=== PATIENT | female | born 1990 | race Caucasian/White ===

== ENCOUNTER 2016-09-18 22:58 | Emergency (ER) | payer OTHER ==
[2016-09-19 00:49] LABS: Hematocrit 41 % (35-47); Hemoglobin 13.8 g/dl (12.0-16.0); Mean Corpuscular HGB Conc 33 g/dl (31-36); Mean Corpuscular Hemoglobin 30 pg (27-31); Mean Corpuscular Volume 90 fL (80-97); Mean Platelet Volume 8 um3 (7.4-10.4); Red Blood Count 4.61 10^6/ul (4.0-5.4); Red Cell Distribution Width 13 % (10.5-15); White Blood Count 8.4 10^3/ul (3.5-10.8)
[2016-09-19 01:18] LABS: Albumin 4.2 g/dL (3.2-5.2); BUN/Creatinine Ratio 13.8 (8-20); Calcium 9.5 mg/dL (8.6-10.3); EGFR African American 93.3 (>60); EGFR Non-African American 72.6 (>60); Globulin 3.2 g/dL (2-4); Magnesium 2.1 mg/dL (1.9-2.7); Potassium 3.6 mmol/L (3.5-5.0); Total Bilirubin 0.5 mg/dL (0.2-1.0); Total Protein 7.4 g/dL (6.4-8.9)
[2016-09-19 01:28] LABS: TSH (Thyroid Stimulating Horm) 3.9 mcIU/mL (0.34-5.60)
--- NOTE | 2016-09-19 01:29 | ED ---
Antonio Smith Matthew, scribed for Edwin Hearn MD on 09/18/16 at 2346 . Palpitations / Dysrhythmia - HPI Summary HPI Summary: A 25 y/o female presents to the ED with palpitations since since 22:00 today, which have since resolved. The palpitations lasted for __ and have since reoslved. She lasted has a plapitaiton a week ago. She was sitting on the couch when the symptoms started. - History of Current Complaint Chief Complaint: EDDysrhythmPalp Time Seen by Provider: 09/18/16 23:32 Hx Obtained From: Patient Onset/Duration: Sudden Onset, Lasting Hours - 1, Resolved Timing: Constant Severity Initially: Moderate Severity Currently: None Aggravating: Nothing Alleviating: Nothing Associated Signs & Symptoms: Negative - Allergy/Home Medications Allergies/Adverse Reactions: Allergies Allergy/AdvReac Type Severity Reaction Status Date / Time Azithromycin [From Zithromax] Allergy Difficulty Verified 02/23/16 11:05 Breathing/Wheezing PMH/Surg Hx/FS Hx/Imm Hx Endocrine/Hematology History: Denies: Hx Diabetes Cardiovascular History: Denies: Hx Hypertension, Hx Pacemaker/ICD Respiratory History: Reports: Hx Asthma GI History: Reports: Hx Gastroesophageal Reflux Disease - RARELY History: Denies: Hx Renal Disease Sensory History: Denies: Hx Contacts or Glasses, Hx Hearing Aid Opthamlomology History: Denies: Hx Contacts or Glasses Psychiatric History: Denies: Hx Panic Disorder - Surgical History Surgery Procedure, Year, and Place: WISDOM TEETH REMOVAL 2010. D+C 2009 [place]. Tonsilectomy Hx Anesthesia Reactions: No Infectious Disease History: Denies: Hx Clostridium Difficile, Hx Hepatitis, Hx Human Immunodeficiency Virus (HIV), Hx of Known/Suspected MRSA, Hx Shingles, Hx Tuberculosis, Hx Known/ Suspected VRE, Hx Known/Suspected VRSA, History Other Infectious Disease, Traveled Outside the [place] in Last 30 Days - Family History Known Family History: Positive: Hypertension - Social History Alcohol Use: Rare Substance Use Type: Reports: None Substance Use Comment - Amount & Last Used: 1 WEEK AGO Smoking Status (MU): Never Smoked Tobacco Have You Smoked in the Last Year: No Review of Systems Constitutional: Negative Eyes: Negative ENT: Negative Positive: Palpitations - since resolved Respiratory: Negative Gastrointestinal: Negative Genitourinary: Negative Musculoskeletal: Negative Skin: Negative Neurological: Negative Psychological: Normal All Other Systems Reviewed And Are Negative: Yes Physical Exam Vital Signs On Initial Exam: Initial Vitals Temp Pulse Resp BP Pulse Ox 97.9 F 69 16 126/79 99 09/18/16 22:59 09/18/16 22:59 09/18/16 22:59 09/18/16 22:59 09/18/16 22:59 Diagnostics - Vital Signs Vital Signs Temp Pulse Resp BP Pulse Ox 09/18/16 22:59 97.9 F 69 16 126/79 99 - Laboratory Lab Results: Lab Results 09/19/16 09/19/16 Range/Units 00:35 00:35 WBC 8.4 (3.5-10.8) 10^3/ul RBC 4.61 (4.0-5.4) 10^6/ul Hgb 13.8 (12.0-16.0) g/dl Hct 41 (35-47) % MCV 90 (80-97) fL MCH 30 (27-31) pg MCHC 33 (31-36) g/dl RDW 13 (10.5-15) % Plt Count 251 (150-450) 10^3/ul MPV 8 (7.4-10.4) um3 Neut % (Auto) 44.8 (38-83) % Lymph % (Auto) 38.6 (25-47) % [place] % (Auto) 9.3 H (1-9) % Eos % (Auto) 6.0 (0-6) % Baso % (Auto) 1.3 (0-2) % Absolute Neuts (auto) 3.8 (1.5-7.7) 10^3/ul Absolute Lymphs (auto) 3.2 (1.0-4.8) 10^3/ul Absolute Monos (auto) 0.8 (0-0.8) 10^3/ul Absolute Eos (auto) 0.5 (0-0.6) 10^3/ul Absolute Basos (auto) 0.1 (0-0.2) 10^3/ul Absolute Nucleated RBC 0 10^3/ul Nucleated RBC % 0 Sodium 138 (133-145) mmol/L Potassium 3.6 (3.5-5.0) mmol/L Chloride 105 (101-111) mmol/L Carbon Dioxide 28 (22-32) mmol/L Anion Gap 5 (2-11) mmol/L BUN 13 (6-24) mg/dL Creatinine 0.94 (0.51-0.95) mg/dL Est GFR ( Amer) 93.3 (>60) Est GFR (Non-Af Amer) 72.6 (>60) BUN/Creatinine Ratio 13.8 (8-20) Glucose 88 (70-100) mg/dL Calcium 9.5 (8.6-10.3) mg/dL Magnesium 2.1 (1.9-2.7) mg/dL Total Bilirubin 0.50 (0.2-1.0) mg/dL AST 18 (13-39) U/L ALT 11 (7-52) U/L Alkaline Phosphatase 46 (34-104) U/L Total Protein 7.4 (6.4-8.9) g/dL Albumin 4.2 (3.2-5.2) g/dL Globulin 3.2 (2-4) g/dL Albumin/Globulin Ratio 1.3 (1-3) TSH 3.90 (0.34-5.60) mcIU/mL Beta HCG, Quant 0.73 mIU/mL Result Diagrams: 09/19/16 00:35 09/19/16 00:35 Lab Statement: Any lab studies that have been ordered have been reviewed, and results considered in the medical decision making process. The documentation as recorded by the Antonio barbosa Matthew accurately reflects the service I personally performed and the decisions made by , Edwin Hearn MD.
[2016-09-19] MEDS ORDERED: Ondansetron ODT TAB* 4 MG PO ONE (01:49)
[2016-09-19] MEDS ORDERED: Ondansetron ODT TAB* 4 MG ONE (01:51)
[2016-09-19 01:59] VITALS: BP 105/64
[2016-09-20 22:06] LABS: B garinii/B afzelii PCR Negative (Negative); B mayonii PCR Negative (Negative)
== END 2016-09-19 01:58 | disposition home or self-care (01) ==
LOC: ED 22:58
DX: R00.2 Palpitations (principal)
CPT/HCPCS: 36415; 80053; 83735; 84443; 84702; 85025; 87476; 87798; 93005; 99283

== ENCOUNTER 2016-10-10 13:14 | Emergency (ER) | payer OTHER ==
[2016-10-10] MEDS ORDERED: Aspirin Low Dose CHEW TAB* 81 MG PO ONE (15:48)
--- NOTE | 2016-10-10 16:13 | RAD ---
INDICATION: Palpitations. COMPARISON: Comparison is made with a prior study from September 23, 2008. TECHNIQUE: A portable view of the chest was obtained. FINDINGS: Cardiac and mediastinal contours appear to be within normal limits. The lungs are clear. No pleural effusion is seen. IMPRESSION: NO EVIDENCE FOR ACUTE DISEASE.
[2016-10-10 16:22] LABS: Hematocrit 42 % (35-47); Mean Corpuscular HGB Conc 33 g/dl (31-36); Mean Corpuscular Hemoglobin 30 pg (27-31); Mean Corpuscular Volume 89 fL (80-97); Mean Platelet Volume 8 um3 (7.4-10.4); Red Blood Count 4.72 10^6/ul (4.0-5.4); Red Cell Distribution Width 13 % (10.5-15); White Blood Count 7.4 10^3/ul (3.5-10.8)
[2016-10-10 16:36] LABS: ALT 10 U/L (7-52); AST 18 U/L (13-39); Albumin 4.1 g/dL (3.2-5.2); Alkaline Phosphatase 50 U/L (34-104); Anion Gap 7 mmol/L (2-11); Blood Urea Nitrogen 8 mg/dL (6-24); CO2 Carbon Dioxide 24 mmol/L (22-32); Calcium 9.3 mg/dL (8.6-10.3); Chloride 105 mmol/L (101-111); EGFR African American 124.9 (>60); EGFR Non-African American 97.1 (>60); Globulin 3.3 g/dL (2-4); Glucose 88 mg/dL (70-100); Potassium 3.6 mmol/L (3.5-5.0); Sodium 136 mmol/L (133-145); Total Protein 7.4 g/dL (6.4-8.9)
[2016-10-10 16:56] LABS: T4 7.85 mcg/mL (6.09-12.23)
[2016-10-10 16:57] LABS: TSH (Thyroid Stimulating Horm) 1.41 mcIU/mL (0.34-5.60)
[2016-10-10 17:06] LABS: Magnesium 2.1 mg/dL (1.9-2.7)
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
[2016-10-10 18:05] VITALS: BP 119/82
== END 2016-10-10 18:08 | disposition home or self-care (01) ==
LOC: ED 13:14
DX: R00.2 Palpitations (principal); R51 Headache; R11.0 Nausea
CPT/HCPCS: 36415; 71010; 80053; 83605; 83735; 83880; 84436; 84443; 84484; 84702; 85025; 93005; 99283; A9270-GY

== ENCOUNTER 2017-03-23 15:47 | Emergency (ER) | payer SELFPAY ==
[2017-03-23] MEDS ORDERED: NS 0.9% 1000 ML* 2,000 ML IV ONE (17:35)
[2017-03-23] MEDS ORDERED: Ondansetron INJ* 2 MG/ML VIAL IV ONE (17:35)
[2017-03-23] MEDS ORDERED: Clindamycin 900 MG IVPREMIX(* 900 MG/50 ML SDV IV ONE (17:40)
[2017-03-23 18:49] LABS: Hematocrit 41 % (35-47); Hemoglobin 13.7 g/dl (12.0-16.0); Mean Corpuscular HGB Conc 33 g/dl (31-36); Mean Corpuscular Hemoglobin 30 pg (27-31); Mean Corpuscular Volume 91 fL (80-97); Mean Platelet Volume 8 um3 (7.4-10.4); Red Blood Count 4.55 10^6/ul (4.0-5.4); Red Cell Distribution Width 13 % (10.5-15); White Blood Count 10.2 10^3/ul (3.5-10.8)
[2017-03-23 19:07] LABS: ALT 13 U/L (7-52); AST 16 U/L (13-39); Albumin 4.1 g/dL (3.2-5.2); Alkaline Phosphatase 44 U/L (34-104); Anion Gap 7 mmol/L (2-11); BUN/Creatinine Ratio 14.5 (8-20); Blood Urea Nitrogen 10 mg/dL (6-24); C Reactive Protein < 1.00 mg/L (< 5.00); CO2 Carbon Dioxide 26 mmol/L (22-32); Calcium 9.5 mg/dL (8.6-10.3); Chloride 104 mmol/L (101-111); Creatine Kinase 73 U/L (10-223); EGFR African American 132.3 (>60); EGFR Non-African American 102.8 (>60); Globulin 3.1 g/dL (2-4); Glucose 119 mg/dL (70-100); Lipase 20 U/L (11.0-82.0); Magnesium 1.8 mg/dL (1.9-2.7); Potassium 3.5 mmol/L (3.5-5.0); Sodium 137 mmol/L (133-145); Total Protein 7.2 g/dL (6.4-8.9)
[2017-03-23 21:23] LABS: Urine Bilirubin Negative (Negative); Urine Glucose Negative (Negative); Urine Nitrite Negative (Negative)
[2017-03-23] MEDS ORDERED: Clindamycin CAP* 150 MG PO ONE (22:10)
--- NOTE | 2017-03-23 22:20 | ED ---
Lore Smith Thomas, scribed for Junior Guzman MD on 03/23/17 at 1738 . GI/ HPI - HPI Summary HPI Summary: The pt is a 26 y/o F presenting to the ED after accidentally leaving a tampon inside her for four days. The tampon was inserted six days ago days ago and was removed two days ago. The patient believed she was spotting four days ago before she realized the tampon was still present. She had malodorous vaginal discharge. Three days ago, the patient had L-sided flank pain that was relieved when she removed the tampon two days ago. She c/o nausea (onset three days ago) , headache, sweats, chills, and diarrhea (onset three days ago but improving). The pt rates the pain 5/10. Pt denies fever, chest congestion, ear pain, and dysuria. Her last menstrual period began about a week and a half ago. - History of Current Complaint Chief Complaint: EDGeneral Time Seen by Provider: 03/23/17 17:10 Stated Complaint: NEED TO BE TESTED FOR TSS Hx Obtained From: Patient Hx Last Menstrual Period: 11/24/15 Onset/Duration: Started Days Ago - tampon inserted 6 days ago, Still Present Timing: Constant Severity: Moderate Pain Intensity: 5 Associated Signs and Symptoms: Positive: Other: - [place] vaginal discharge, L -sided flank pain (relieved by examination), nausea, headache, sweats, chills, diarrhea; NEGATIVE: fever, chest congestion, ear pain, dysuria Aggravating Factor(s): Nothing - Allergy/Home Medications Allergies/Adverse Reactions: Allergies Allergy/AdvReac Type Severity Reaction Status Date / Time Azithromycin [From Zithromax] Allergy Difficulty Verified 10/10/16 13:15 Breathing/Wheezing PMH/Surg Hx/FS Hx/Imm Hx Previously Healthy: No Endocrine/Hematology History: Denies: Hx Diabetes Cardiovascular History: Denies: Hx Hypertension, Hx Pacemaker/ICD Respiratory History: Reports: Hx Asthma GI History: Reports: Hx Gastroesophageal Reflux Disease - RARELY History: Denies: Hx Renal Disease Sensory History: Denies: Hx Contacts or Glasses, Hx Hearing Aid Opthamlomology History: Denies: Hx Contacts or Glasses Psychiatric History: Denies: Hx Panic Disorder - Surgical History Surgery Procedure, Year, and Place: WISDOM TEETH REMOVAL 2010. D+C 2009 [place]. Tonsilectomy Hx Anesthesia Reactions: No Infectious Disease History: No Infectious Disease History: Denies: Hx Clostridium Difficile, Hx Hepatitis, Hx Human Immunodeficiency Virus (HIV), Hx of Known/Suspected MRSA, Hx Shingles, Hx Tuberculosis, Hx Known/ Suspected VRE, Hx Known/Suspected VRSA, History Other Infectious Disease, Traveled Outside the [place] in Last 30 Days - Family History Known Family History: Positive: Hypertension, Diabetes Family History: FHx of CA, palpitations, and anxiety - Social History Alcohol Use: Rare Substance Use Type: Reports: None Substance Use Comment - Amount & Last Used: 1 WEEK AGO Hx Tobacco Use: No Smoking Status (MU): Never Smoked Tobacco Have You Smoked in the Last Year: No Review of Systems Positive: Chills, Other - Sweats. Negative: Fever Negative: Ear Ache Negative: Other - NEGATIVE: chest congestion Positive: Diarrhea, Nausea Positive: flank pain - L-sided (relieved by time of examination), other - Malodorous vaginal discharge. Negative: dysuria Positive: Headache All Other Systems Reviewed And Are Negative: Yes Physical Exam - Summary Physical Exam Summary: General: well-appearing, no pain distress Skin: warm, color reflects adequate perfusion, dry Head: normal Eyes: EOMI, YULIYA ENT: normal Neck: supple, nontender Respiratory: CTA, breath sounds present Cardiovascular: RRR Abdomen: soft, nontender Bowel: present Musculoskeletal: normal, strength/ROM intact Neurological: normal, sensory/motor intact, A&O x3 Psychological: affect/mood appropriate Triage Information Reviewed: Yes Vital Signs On Initial Exam: Initial Vitals Temp Pulse Resp BP Pulse Ox 98.4 F 81 20 124/75 100 03/23/17 15:49 03/23/17 15:49 03/23/17 15:49 03/23/17 15:49 03/23/17 15:49 Vital Signs Reviewed: Yes Pelvic Exam: Positive: external exam normal, no cerv. motion tender, discharge - MINIMAL MILDLY FOUL SMELLING DISCHARGE. NO FB RETAINED IN VAGINA. REGULAR CX SENT ALONG WITH GC/CHLAMYDIA/TRICH/ANNAMARIA/BV. Diagnostics - Vital Signs Vital Signs Temp Pulse Resp BP Pulse Ox 03/23/17 15:49 98.4 F 81 20 124/75 100 - Laboratory Lab Results: Lab Results 03/23/17 03/23/17 03/23/17 Range/Units 18:23 18:23 18:23 WBC (3.5-10.8) 10^3/ul RBC (4.0-5.4) 10^6/ul Hgb (12.0-16.0) g/dl Hct (35-47) % MCV (80-97) fL MCH (27-31) pg MCHC (31-36) g/dl RDW (10.5-15) % Plt Count (150-450) 10^3/ul MPV (7.4-10.4) um3 Neut % (Auto) (38-83) % Lymph % (Auto) (25-47) % [place] % (Auto) (1-9) % Eos % (Auto) (0-6) % Baso % (Auto) (0-2) % Absolute Neuts (auto) (1.5-7.7) 10^3/ul Absolute Lymphs (auto) (1.0-4.8) 10^3/ul Absolute Monos (auto) (0-0.8) 10^3/ul Absolute Eos (auto) (0-0.6) 10^3/ul Absolute Basos (auto) (0-0.2) 10^3/ul Absolute Nucleated RBC 10^3/ul Nucleated RBC % INR (Anticoag Therapy) 0.93 (0.89-1.11) APTT 28.8 (26.0-36.3) seconds Sodium 137 (133-145) mmol/L Potassium 3.5 (3.5-5.0) mmol/L Chloride 104 (101-111) mmol/L Carbon Dioxide 26 (22-32) mmol/L Anion Gap 7 (2-11) mmol/L BUN 10 (6-24) mg/dL Creatinine 0.69 (0.51-0.95) mg/dL Est GFR ( Amer) 132.3 (>60) Est GFR (Non-Af Amer) 102.8 (>60) BUN/Creatinine Ratio 14.5 (8-20) Glucose 119 H (70-100) mg/dL Lactic Acid 0.7 (0.5-2.0) mmol/L Calcium 9.5 (8.6-10.3) mg/dL Magnesium 1.8 L (1.9-2.7) mg/dL Total Bilirubin 0.50 (0.2-1.0) mg/dL AST 16 (13-39) U/L ALT 13 (7-52) U/L Alkaline Phosphatase 44 (34-104) U/L Total Creatine Kinase 73 (10-223) U/L C-Reactive Protein < 1.00 (< 5.00) mg/L Total Protein 7.2 (6.4-8.9) g/dL Albumin 4.1 (3.2-5.2) g/dL Globulin 3.1 (2-4) g/dL Albumin/Globulin Ratio 1.3 (1-3) Lipase 20 (11.0-82.0) U/L Beta HCG, Quant < 0.60 mIU/mL Urine Color Urine Appearance Urine pH (5-9) Ur Specific [place] (1.010-1.030) Urine Protein (Negative) Urine Ketones (Negative) Urine Blood (Negative) Urine Nitrate (Negative) Urine Bilirubin (Negative) Urine Urobilinogen (Negative) Ur Leukocyte Esterase (Negative) Urine Glucose (Negative) T.vaginalis (Amp Det) 03/23/17 03/23/17 03/23/17 Range/Units 18:23 20:56 21:04 WBC 10.2 (3.5-10.8) 10^3/ul RBC 4.55 (4.0-5.4) 10^6/ul Hgb 13.7 (12.0-16.0) g/dl Hct 41 (35-47) % MCV 91 (80-97) fL MCH 30 (27-31) pg MCHC 33 (31-36) g/dl RDW 13 (10.5-15) % Plt Count 298 (150-450) 10^3/ul MPV 8 (7.4-10.4) um3 Neut % (Auto) 52.4 (38-83) % Lymph % (Auto) 37.4 (25-47) % [place] % (Auto) 6.1 (1-9) % Eos % (Auto) 3.3 (0-6) % Baso % (Auto) 0.8 (0-2) % Absolute Neuts (auto) 5.3 (1.5-7.7) 10^3/ul Absolute Lymphs (auto) 3.8 (1.0-4.8) 10^3/ul Absolute Monos (auto) 0.6 (0-0.8) 10^3/ul Absolute Eos (auto) 0.3 (0-0.6) 10^3/ul Absolute Basos (auto) 0.1 (0-0.2) 10^3/ul Absolute Nucleated RBC 0.01 10^3/ul Nucleated RBC % 0.1 INR (Anticoag Therapy) (0.89-1.11) APTT (26.0-36.3) seconds Sodium (133-145) mmol/L Potassium (3.5-5.0) mmol/L Chloride (101-111) mmol/L Carbon Dioxide (22-32) mmol/L Anion Gap (2-11) mmol/L BUN (6-24) mg/dL Creatinine (0.51-0.95) mg/dL Est GFR ( Amer) (>60) Est GFR (Non-Af Amer) (>60) BUN/Creatinine Ratio (8-20) Glucose (70-100) mg/dL Lactic Acid (0.5-2.0) mmol/L Calcium (8.6-10.3) mg/dL Magnesium (1.9-2.7) mg/dL Total Bilirubin (0.2-1.0) mg/dL AST (13-39) U/L ALT (7-52) U/L Alkaline Phosphatase (34-104) U/L Total Creatine Kinase (10-223) U/L C-Reactive Protein (< 5.00) mg/L Total Protein (6.4-8.9) g/dL Albumin (3.2-5.2) g/dL Globulin (2-4) g/dL Albumin/Globulin Ratio (1-3) Lipase (11.0-82.0) U/L Beta HCG, Quant mIU/mL Urine Color Yellow Urine Appearance Clear Urine pH 6.0 (5-9) Ur Specific [place] 1.016 (1.010-1.030) Urine Protein Negative (Negative) Urine Ketones Trace H (Negative) Urine Blood Negative (Negative) Urine Nitrate Negative (Negative) Urine Bilirubin Negative (Negative) Urine Urobilinogen Negative (Negative) Ur Leukocyte Esterase Negative (Negative) Urine Glucose Negative (Negative) T.vaginalis (Amp Det) Pending Result Diagrams: 03/23/17 18:23 10/28/17 18:23 Lab Statement: Any lab studies that have been ordered have been reviewed, and results considered in the medical decision making process. - EKG 17:46 Cardiac Rate: NL - 76 BPM EKG Rhythm: Sinus Rhythm EKG Interpretation: Normal ST, no ectopy. GIGU Course/Dx - Course Course Of Treatment: DISCUSSED RESULTS WITH PATIENT. SHE DOES NOT HAVE TSS AT THIS TIME. VAGINAL CX ARE PENDING. WILL TREAT WITH PO CLINDAMYCIN. PATIENT WILL F/U WITH PMD. WE DISCUSSED THE S/SX OF TSS AND SHE UNDERSTANDS SHE NEEDS TO GET REEVALUATED FOR ANY WORSENING OF HER CONDITION. NO CRITCAL CARE TIME. - Diagnoses Provider Diagnoses: Vaginal foreign body, Vaginitis Discharge - Discharge Plan Condition: Stable Disposition: HOME Prescriptions: Clindamycin Cap(NF) [Clindamycin Cap 300 mg Cap(NF)] 300 mg PO Q6H #26 cap Patient Education Materials: Vaginal Foreign Body (ED), Vaginitis (ED) Referrals: Judy Cee NP [Primary Care Provider] - Additional Instructions: FOLLOW UP WITH YOUR DOCTOR. RETURN TO THE EMERGENCY DEPARTMENT FOR ANY WORSENING OF YOUR CONDITION; FEVER, YOU FEEL ILL, PAIN OR QUESTIONS OR CONCERNS. The documentation as recorded by the Lore barbosa Thomas accurately reflects the service I personally performed and the decisions made by me, Junior Guzman MD.
[2017-03-23 22:38] VITALS: BP 114/71
[2017-03-24 07:29] LABS: Trichomonas Source Endocervical (Negative)
--- NOTE | 2017-03-24 09:13 | ED ---
Progress - Progress Note Progress Note: Pt's vaginal cx reveals staph aureus (neg for MRSA) - she was started on clindamycin. No s/sx of TSS at time of exam. Danger s/sx reviewed w/ pt prior to d/c. No changes in tx at this time. Course/Dx - Course Course Of Treatment: DISCUSSED RESULTS WITH PATIENT. SHE DOES NOT HAVE TSS AT THIS TIME. VAGINAL CX ARE PENDING. WILL TREAT WITH PO CLINDAMYCIN. PATIENT WILL F/U WITH PMD. WE DISCUSSED THE S/SX OF TSS AND SHE UNDERSTANDS SHE NEEDS TO GET REEVALUATED FOR ANY WORSENING OF HER CONDITION. NO CRITCAL CARE TIME. - Diagnoses Provider Diagnoses: Vaginal foreign body, Vaginitis
== END 2017-03-23 22:48 | disposition home or self-care (01) ==
LOC: ED 15:47
DX: T19.2XXA Foreign body in vulva and vagina, initial encounter (principal); X58.XXXA Exposure to other specified factors, initial encounter; Y92.9 Unspecified place or not applicable; N76.0 Acute vaginitis; J45.909 Unspecified asthma, uncomplicated; K21.9 Gastro-esophageal reflux disease without esophagitis
CPT/HCPCS: 36415; 80053; 81003; 82550; 83605; 83690; 83735; 84702; 85025; 85610; 85730; 86140; 87040; 87070; 87077; 87205; 87480; 87491; 87510; 87591; 87640; 87641; 87661; 93005; 96360; 96374; 96375; 99284; A9270-GY; J2405

== ENCOUNTER 2017-05-18 22:32 | Day surgery (SDC) | payer BC ==
--- OUTSIDE RECORDS SUMMARY | 2017-05-18 22:57 | XMS REPORT ---
:1990 External Reference #:[id number] Author Organization [facility] Address [address] [place] [address] Phone [phone] Care Team Providers Name Role Phone Judy Honeycutt Primary Care Physician Unavailable Payers Type Date Identification Numbers Payment Provider Subscriber Commercial Effective: Policy Number: [id number] Micha Beckford 2013 Medicaid Expires: 2015 PayID: [id number] [address] [place] [phone] Commercial Expires: 2016 Policy Number: Micha Pillai [id number] Medicaid Karani PayID: [id number] [address] [place] [phone] Medigap Part B Effective: Policy Number: Dimitri Alex N 2017 [id number] [employer] Name: [employer] Silver [address] PayID: [id number] EMORY Bowling [id number] Medigap Part B Effective: Policy Number: Dimitri Alex N 2017 [id number] Karani Group Name: [place] [address] PayID: [id number] EMORY Bowling [address] Problems Description No Information Family History Date Family Member(s) Problem(s) Comments Father lymphoma Father due to lymphoma () Mother Depression Mother Anxiety Maternal Grandfather Hypertension Maternal Grandfather Asthma Maternal Grandfather Diabetes Maternal Grandmother Hypertension Social History Type Date Description Comments Education Highest level completed, Associates Degree Marital Status Single Lives With Boyfriend Occupation branch lending officer [employer] Cigarette Use Never Smoked Cigarettes ETOH Use Occasionally consumes alcohol Recreational Drug Use Denies Drug Use Smoking Patient has never smoked Enjoy Exercising Enjoys exercising Allergies, Adverse Reactions, Alerts Date Description Reaction Status Severity Comments 09/23/2014 Azithromycin active asthma attack 02/01/2016 Cats active 08/31/2013 NKDA inactive Medications Medication Date Status Form Strength Qnty SIG Indications Ordering Provider Massage Therapy 04/24/ Active massage Judy 2016 therapy for Coleman, neck pain and [employer]IN[employer] headaches Chiropractic 04/24/ Active Chiropractic Judy Therapy 2017 therapy for Coleman, neck pain and [employer] headaches Advair Diskus 08/31/ Active Aerosol 100-50mcg 60uni inhale one Cami 2013 /Dose ts puff by mouth P. twice a day Blegen, for asthma M.D. Iron (Ferrous / Active Tablets 256(28Fe) 1 tab by Unknown Gluconate) 0000 mg mouth twice a day Vitamin B-12 / Active Tablets 500mcg 2 by mouth Unknown 0000 every day Natural Vitamin D / Active Capsules 5000Unit 1 by mouth Unknown 0000 every day Pantoprazole 10/09/ Hx Tablets 40mg 30tab 1 by mouth R11.0 Judy Sodium 2016 - DR dvoer every day in [facility], 04/24/ the evening [employer]-C 2016 Amoxicillin/Cla 09/23/ Hx Tablets 875-125mg 20tab 1 by mouth Cami gaona 2014 - s twice a day x P. Potassium days as Blegen, 2016 directed for M.D. sinus infection Fluconazole 03/16/ Hx Tablets 150mg 2tabs 1 by mouth 616.10 Marino 2013 - , september Nely Wei, 09/23/ repeat in 1 [employer] 2014 week if sx still present Metronidazole 09/06/ Hx Tablets 500mg 14tab take 1 tablet Judy 2013 - s po bid x 7 [facility], 09/23/ days [employer]-C 2014 Fluconazole 09/01/ Hx Tablets 200mg 2tabs 1 po , september Judy 2013 - repeat in 1 [facility], 03/16/ week if [employer] 2013 needed Ventolin HFA 08/31/ Hx Aerosol 108(90Bas 1unit 2 puffs every Judy 2013 - ) s q 4-6 hours Coleman, 10/09/ mcg/Act prn [employer]IN[employer]-C 2016 wheezing/tigh tness Immunizations CPT Code Status Date Vaccine Lot # [id number] Refused 05/11/2016 Influenza Virus Vaccine, Quadrivalent, 3 Yr > Quad, Preserv Free Vital Signs Date Vital Result Comment 04/24/2017 Weight 167.00 lb Weight in kg's 75.751 BP Systolic 100 mmHg BP Diastolic 70 mmHg Heart Rate 64 /min Body Temperature 97.9 F Respiratory Rate 14 /min 10/09/2016 Weight 160.00 lb Weight in kg's 72.576 BP Systolic 120 mmHg BP Diastolic 84 mmHg Heart Rate 96 /min Body Temperature 97.9 F O2 % BldC Oximetry 98 % 05/11/2016 Weight 165.00 lb Weight in kg's 74.844 BP Systolic 100 mmHg BP Diastolic 70 mmHg Heart Rate 52 /min Body Temperature 97.9 F Respiratory Rate 12 /min 02/01/2016 Weight 164.00 lb Weight in kg's 74.390 BP Systolic 106 mmHg BP Diastolic 68 mmHg Heart Rate 72 /min Body Temperature 99.1 F Height 62.5 inches 5'2.50" BMI (Body Mass Index) 29.5 kg/m2 09/23/2014 Weight 144.00 lb Weight in kg's 65.318 BP Systolic 100 mmHg BP Diastolic 80 mmHg Heart Rate 76 /min Body Temperature 97.5 F O2 % BldC Oximetry 95 % 03/16/2014 Weight 136.00 lb Weight in kg's 61.690 BP Systolic 104 mmHg BP Diastolic 70 mmHg Heart Rate 84 /min Body Temperature 97.4 F 02/03/2014 Weight 144.00 lb Weight in kg's 65.318 BP Systolic 98 mmHg BP Diastolic 74 mmHg Heart Rate 60 /min 08/31/2013 Weight 151.00 lb Weight in kg's 68.494 BP Systolic 110 mmHg BP Diastolic 74 mmHg Heart Rate 72 /min Height 62 inches 5'2" BMI (Body Mass Index) 27.6 kg/m2 Last Menstrual Period [id number] O2 % BldC Oximetry 98 % Results Test Date Test Result H/L Range Note Urinalysis Profile 03/23/2017 Urine Color Yellow Urine Appearance Clear Urine Specific [place] 1.016 1.010-1.030 Urine pH 6.0 5-9 Urine Urobilinogen Negative Negative Urine Ketones Trace Negative Urine Protein Negative Negative Urine Leukocytes Negative Negative Urine Blood Negative Negative Urine Nitrite Negative Negative Urine Bilirubin Negative Negative Urine Glucose Negative Negative Laboratory test finding 03/23/2017 Wound/Misc Culture-Gram SEE RESULT BELOW 1, 2 Stain MRSA/S. aureus Ssti PCR SEE RESULT BELOW 1, 3 Gardnerella/Yeast: Vaginal Dna SEE RESULT BELOW 1, 4 GC/Chlamydia Amplified Rna 03/23/2017 Chlamydia trachomatis Rna Negative Negative 1 Neisseria gonorrhoeae (GC) Rna Negative Negative 1 Laboratory test 03/23/2017 Trichomonas Vaginalis Negative Negative 1, 5 finding Rna Laboratory test 03/23/2017 Blood Culture SEE RESULT BELOW 6, 7 finding CBC Auto Diff 03/23/2017 White Blood Count 10.2 10^3/uL 3.5-10.8 Red Blood Count 4.55 10^6/uL 4.0-5.4 Hemoglobin 13.7 g/dL 12.0-16.0 Hematocrit 41 % 35-47 Mean Corpuscular Volume 91 fL 80-97 Mean Corpuscular Hemoglobin 30 pg 27-31 Mean Corpuscular HGB Conc 33 g/dL 31-36 Red Cell Distribution Width 13 % 10.5-15 Platelet Count 298 10^3/uL 150-450 Mean Platelet Volume 8 um3 7.4-10.4 Abs Neutrophils 5.3 10^3/uL 1.5-7.7 Abs Lymphocytes 3.8 10^3/uL 1.0-4.8 Abs Monocytes 0.6 10^3/uL 0-0.8 Abs Eosinophils 0.3 10^3/uL 0-0.6 Abs Basophils 0.1 10^3/uL 0-0.2 Abs Nucleated RBC 0.01 10^3/uL Granulocyte % 52.4 % 38-83 Lymphocyte % 37.4 % 25-47 Monocyte % 6.1 % 1-9 Eosinophil % 3.3 % 0-6 Basophil % 0.8 % 0-2 Nucleated Red Blood Cells % 0.1 Comp Metabolic Panel 03/23/2017 Sodium 137 mmol/L 133-145 Potassium 3.5 mmol/L 3.5-5.0 Chloride 104 mmol/L 101-111 Co2 Carbon Dioxide 26 mmol/L 22-32 Anion Gap 7 mmol/L 2-11 Glucose 119 mg/dL High 70-100 Blood Urea Nitrogen 10 mg/dL 6-24 Creatinine 0.69 mg/dL 0.51-0.95 BUN/Creatinine Ratio 14.5 8-20 Calcium 9.5 mg/dL 8.6-10.3 Total Protein 7.2 g/dL 6.4-8.9 Albumin 4.1 g/dL 3.2-5.2 Globulin 3.1 g/dL 2-4 Albumin/Globulin Ratio 1.3 1-3 Total Bilirubin 0.50 mg/dL 0.2-1.0 Alkaline Phosphatase 44 U/L 34-104 Alt 13 U/L 7-52 Ast 16 U/L 13-39 Egfr Non- 102.8 >60 Egfr 132.3 >60 8 Laboratory test finding 03/23/2017 Magnesium 1.8 mg/dL Low 1.9-2.7 Lipase 20 U/L 11.0-82.0 Creatine Kinase 73 U/L 10-223 C Reactive Protein < 1.00 mg/L < 5.00 9 HCG < 0.60 mIU/mL 10 Inr/Protime 03/23/2017 Inr 0.93 0.89-1.11 Laboratory test finding 03/23/2017 Partial Thrombo Time 28.8 seconds 26.0 -36.3 PTT Lactic Acid 0.7 mmol/L 0.5-2.0 11 Laboratory test finding 11/12/2016 Erythrocyte Sed Rate 12 mm/Hr 0-14 C Reactive Protein 1.95 mg/L < 5.00 12 Laboratory test finding 10/10/2016 Lactic Acid 0.6 mmol/L 0.5-2.0 13 B-Type Natriuretic Peptide BNP 25 pg/mL 14 CBC Auto Diff 10/10/2016 White Blood Count 7.4 10^3/uL 3.5-10.8 Red Blood Count 4.72 10^6/uL 4.0-5.4 Hemoglobin 14.0 g/dL 12.0-16.0 Hematocrit 42 % 35-47 Mean Corpuscular Volume 89 fL 80-97 Mean Corpuscular Hemoglobin 30 pg 27-31 Mean Corpuscular HGB Conc 33 g/dL 31-36 Red Cell Distribution Width 13 % 10.5-15 Platelet Count 271 10^3/uL 150-450 Mean Platelet Volume 8 um3 7.4-10.4 Abs Neutrophils 4.6 10^3/uL 1.5-7.7 Abs Lymphocytes 2.0 10^3/uL 1.0-4.8 Abs Monocytes 0.6 10^3/uL 0-0.8 Abs Eosinophils 0.2 10^3/uL 0-0.6 Abs Basophils 0.1 10^3/uL 0-0.2 Abs Nucleated RBC 0.01 10^3/uL Granulocyte % 62.5 % 38-83 Lymphocyte % 26.6 % 25-47 Monocyte % 7.8 % 1-9 Eosinophil % 2.3 % 0-6 Basophil % 0.8 % 0-2 Nucleated Red Blood Cells % 0.1 Laboratory test finding 10/10/2016 Troponin-I (TnI) 0.00 ng/mL <0.04 15 HCG < 0.60 mIU/mL 16 Comp Metabolic Panel 10/10/2016 Sodium 136 mmol/L 133-145 Potassium 3.6 mmol/L 3.5-5.0 Chloride 105 mmol/L 101-111 Co2 Carbon Dioxide 24 mmol/L 22-32 Anion Gap 7 mmol/L 2-11 Glucose 88 mg/dL 70-100 Blood Urea Nitrogen 8 mg/dL 6-24 Creatinine 0.73 mg/dL 0.51-0.95 BUN/Creatinine Ratio 11.0 8-20 Calcium 9.3 mg/dL 8.6-10.3 Total Protein 7.4 g/dL 6.4-8.9 Albumin 4.1 g/dL 3.2-5.2 Globulin 3.3 g/dL 2-4 Albumin/Globulin Ratio 1.2 1-3 Total Bilirubin 0.50 mg/dL 0.2-1.0 Alkaline Phosphatase 50 U/L 34-104 Alt 10 U/L 7-52 Ast 18 U/L 13-39 Egfr Non- 97.1 >60 Egfr 124.9 >60 17 Laboratory test finding 10/10/2016 Thyroxine 7.85 g/mL 6.09-12.23 TSH (Thyroid Stimulating Horm) 1.41 mcIU/mL 0.34-5.60 Magnesium 2.1 mg/dL 1.9-2.7 Laboratory test finding 10/09/2016 Vitamin D Total 25(Oh) 31.9 ng/mL 30- 50 18 Rheumatoid Factor <15 IU/mL <15 19 Cyclic Citrullinated Pep Igg <15.6 U 20 Erythrocyte Sed Rate 23 mm/Hr High 0-14 21 C Reactive Protein 19.07 mg/L High < 5.00 22 Tick-Borne Panel PCR Blood 10/09/2016 Babesia microti PCR Negative Negative Babesia ducani Negative Negative Babesia divergens/Mo-1 Negative Negative 23 Anaplasma phagocytophilum Negative Negative Ehrlichia chaffeensis Negative Negative Ehrlichia ewingii/canis Negative Negative Ehrlichia muris-like Negative Negative 24 B. miyamotoi PCR, B Negative Negative 25 Lyme Disease PCR 09/19/2016 B burgdorferi PCR, Blood Negative Negative B mayonii PCR Negative Negative B garinii/B afzelii PCR Negative Negative Lyme Disease PCR Comment See Comment 26 Laboratory test finding 09/19/2016 Magnesium 2.1 mg/dL 1.9-2.7 HCG 0.73 mIU/mL 27 TSH (Thyroid Stimulating Horm) 3.90 mcIU/mL 0.34-5.60 Comp Metabolic Panel 09/19/2016 Sodium 138 mmol/L 133-145 Potassium 3.6 mmol/L 3.5-5.0 Chloride 105 mmol/L 101-111 Co2 Carbon Dioxide 28 mmol/L 22-32 Anion Gap 5 mmol/L 2-11 Glucose 88 mg/dL 70-100 Blood Urea Nitrogen 13 mg/dL 6-24 Creatinine 0.94 mg/dL 0.51-0.95 BUN/Creatinine Ratio 13.8 8-20 Calcium 9.5 mg/dL 8.6-10.3 Total Protein 7.4 g/dL 6.4-8.9 Albumin 4.2 g/dL 3.2-5.2 Globulin 3.2 g/dL 2-4 Albumin/Globulin Ratio 1.3 1-3 Total Bilirubin 0.50 mg/dL 0.2-1.0 Alkaline Phosphatase 46 U/L 34-104 Alt 11 U/L 7-52 Ast 18 U/L 13-39 Egfr Non- 72.6 >60 Egfr 93.3 >60 28 CBC Auto Diff 09/19/2016 White Blood Count 8.4 10^3/uL 3.5-10.8 Red Blood Count 4.61 10^6/uL 4.0-5.4 Hemoglobin 13.8 g/dL 12.0-16.0 Hematocrit 41 % 35-47 Mean Corpuscular Volume 90 fL 80-97 Mean Corpuscular Hemoglobin 30 pg 27-31 Mean Corpuscular HGB Conc 33 g/dL 31-36 Red Cell Distribution Width 13 % 10.5-15 Platelet Count 251 10^3/uL 150-450 Mean Platelet Volume 8 um3 7.4-10.4 Abs Neutrophils 3.8 10^3/uL 1.5-7.7 Abs Lymphocytes 3.2 10^3/uL 1.0-4.8 Abs Monocytes 0.8 10^3/uL 0-0.8 Abs Eosinophils 0.5 10^3/uL 0-0.6 Abs Basophils 0.1 10^3/uL 0-0.2 Abs Nucleated RBC 0 10^3/uL Granulocyte % 44.8 % 38-83 Lymphocyte % 38.6 % 25-47 Monocyte % 9.3 % High 1-9 Eosinophil % 6.0 % 0-6 Basophil % 1.3 % 0-2 Nucleated Red Blood Cells % 0 CBC Auto Diff 05/11/2016 White Blood Count 6.7 10^3/uL 3.5-10.8 Red Blood Count 4.68 10^6/uL 4.0-5.4 Hemoglobin 14.3 g/dL 12.0-16.0 Hematocrit 43 % 35-47 Mean Corpuscular Volume 92 fL 80-97 Mean Corpuscular Hemoglobin 31 pg 27-31 Mean Corpuscular HGB Conc 33 g/dL 31-36 Red Cell Distribution Width 13 % 10.5-15 Platelet Count 309 10^3/uL 150-450 Mean Platelet Volume 9 um3 7.4-10.4 Abs Neutrophils 3.9 10^3/uL 1.5-7.7 Abs Lymphocytes 2.1 10^3/uL 1.0-4.8 Abs Monocytes 0.5 10^3/uL 0-0.8 Abs Eosinophils 0.2 10^3/uL 0-0.6 Abs Basophils 0.1 10^3/uL 0-0.2 Abs Nucleated RBC 0 10^3/uL Granulocyte % 57.6 % 38-83 Lymphocyte % 31.6 % 25-47 Monocyte % 7.1 % 1-9 Eosinophil % 2.8 % 0-6 Basophil % 0.9 % 0-2 Nucleated Red Blood Cells % 0.1 Comp Metabolic Panel 05/11/2016 Sodium 137 mmol/L 133-145 Potassium 4.0 mmol/L 3.5-5.0 Chloride 104 mmol/L 101-111 Co2 Carbon Dioxide 28 mmol/L 22-32 Anion Gap 5 mmol/L 2-11 Glucose 75 mg/dL 70-100 Blood Urea Nitrogen 9 mg/dL 6-24 Creatinine 0.73 mg/dL 0.51-0.95 BUN/Creatinine Ratio 12.3 8-20 Calcium 9.2 mg/dL 8.6-10.3 Total Protein 7.1 g/dL 6.4-8.9 Albumin 4.2 g/dL 3.2-5.2 Globulin 2.9 g/dL 2-4 Albumin/Globulin Ratio 1.4 1-3 Total Bilirubin 0.80 mg/dL 0.2-1.0 Alkaline Phosphatase 48 U/L 34-104 Alt 9 U/L 7-52 Ast 15 U/L 13-39 Egfr Non- 97.1 >60 Egfr 124.9 >60 29 Laboratory test finding 05/11/2016 Amylase 53 U/L 29-103 30 Lipase 27 U/L 11.0-82.0 31 Laboratory test finding 02/01/2016 Vitamin D Total 25(Oh) 35.9 ng/mL 30- 50 32 Vitamin B12 217 pg/mL 180-914 33 Laboratory test finding 03/16/2014 Affirm Vaginal Dna (SEE NOTE) 34 Probe GC/Chlamydia Amplified 03/16/2014 GC/Chlamydia Rna (SEE NOTE) 35 Rna Laboratory test finding 08/31/2013 HCG DIP Test NEG Neg Laboratory test finding 08/31/2013 Cytology RUN DATE: <SEE NOTE> Laboratory test finding 08/31/2013 Affirm Vaginal Dna (SEE NOTE) 37 Probe 1 Comment: Vaginal discharge,had tampon in 4 days 2 SEE RESULT BELOW Name: ABI BECKFORD : [address]: Junior Guzman MD Acct: [id number] Unit: [id number] AGE: 26 Location: ED Re03/23/17 SEX: F Status: REG ER SPEC: [id number] KENDRA: 03/23/[address]: Junior Guzman MD REQ: [id number] RECD: 03/23/17 STATUS: RES OTHR DR: Judy Honeycutt BLADDER CHANGER _ SOURCE: MISC SOURC SPDESC:VAGINAL ORDERED: Culture Stain COMMENTS: Comment: Vaginal discharge,had tampon in 4 days Procedure Result Reported Site Wound/Misc Gram Stain Preliminary 03/23/17- 2215 ML 4+ Epithelial Cells 1+ Neutrophils 4+ Gram Positive Cocci 4+ Gram Negative Bacilli 2+ Gram Positive Bacilli Wound/Misc Culture PENDING * ML - MAIN LAB ([facility]) . END OF REPORT * ML=Testing performed at Main Lab DEPARTMENT OF PATHOLOGY, [address] [place] [address] Kwadwo Hoffman M.D. Director [facility] # [id number] 3 SEE RESULT BELOW Name: ABI BECKFORD Freya : [address]: Junior Guzman MD Acct: [id number] Unit: [id number] AGE: 26 Location: ED Re03/23/17 SEX: F Status: DEP ER SPEC: [id number] KENDRA: 03/23/[address]: Junior Guzman MD REQ: [id number] RECD: 03/23/17 STATUS: LEILA WAHL DR: Judy Honeycutt BLADDER CHANGER _ SOURCE: MISC SOURC SPDESC:VAGINAL ORDERED: MRSA/SA SSTI, Culture Stain COMMENTS: Verbal to [id number] by [id number] at 2359 on 03/23/17. Results read back accurately. Comment: Vaginal discharge,had tampon in 4 days Procedure Result Reported Site MRSA/S. aureus SSTI PCR Final 03/23/17- 2359 ML Organism 1 MRSA NEGATIVE Organism 2 S.AUREUS POSITIVE Wound/Misc Gram Stain Final 03/24/17- 0935 ML 4+ Epithelial Cells 4+ Gram Positive Cocci 4+ Gram Negative Bacilli 2+ Gram Positive Bacilli Wound/Misc Culture Final 03/25/17- 1345 ML Organism 1 STREP GROUP B Quantity 1+ Organism 2 GARDNERELLA VAGINALIS Quantity 3+ Organism 3 NORMAL SHWETA Quantity 3+ Susceptibility testing of penicillins and other B-lactams approved by FDA for treatment of Streptococcus pyogenes (Group A Strep) and Streptococcus agalactiae (Group B Strep) is not necessary for clinical purposes and need not be done routinely, since as with vancomycin, resistant strains have not been recognized. (CLSI E347-J77;p.66) Positive isolates will be saved for one week. Please call CONTINUED ON NEXT PAGE * ML=Testing performed at Main Lab DEPARTMENT OF PATHOLOGY, [address] [place] [address] Kwadwo Hoffman M.D. Director [facility] # [id number] Patient: ABI BECKFORD [id number] (Continued) Specimen: [id number] Collected: 03/23/17 Received: 03/23/17 (Continued) Procedure Result Reported Site Wound/Misc Culture Final (continued) 03/25/17 1344 the Microbiology Laboratory if further susceptibility testing is needed. * ML - MAIN LAB ([facility]) . END OF REPORT * ML=Testing performed at Main Lab DEPARTMENT OF PATHOLOGY, [address] [place] [address] Kwadwo Hoffman M.D. Director [facility] # [id number] 4 SEE RESULT BELOW Name: ABI BECKFORD : [address]: Junior Guzman MD Acct: [id number] Unit: [id number] AGE: 26 Location: ED Re03/23/17 SEX: F Status: DEP ER SPEC: [id number] KENDRA: 03/23/17 [facility] [place] DR: Junior Guzman MD REQ: [id number] RECD: 03/23/17 STATUS: LEILA WAHL DR: Judy Honeycutt BLADDER CHANGER _ SOURCE: VAGINAL SPDESC: ORDERED: Alyssa,Yeast DNA COMMENTS: Would you like to order Trichomonas Vaginalis RNA testing? Y Procedure Result Reported Site Gardnerella/Yeast: Vaginal DNA Final 03/24/17- 1438 ML Organism 1 POSITIVE GARDNERELLA Organism 2 Negative Jamee The presence of G. vaginalis, although suggestive, is not diagnostic for bacterial vaginosis. Results should be interpreted in conjuction with other clinical and laboratory data available. Women with vaginal discharge should be evaluated for risk factors of cervicitis and pelvic inflammatory disease, toxic shock syndrome (S.aureus), and if present, evaluated for organisms not included in this assay such as N. gonorrhoeae, C. trachomatis, Mobiluncus, Mycoplasma and/or Prevotella. Mixed infections may occur. The performance of this test on patient specimens collected during or immediately after antimicrobial therapy is unknown. The presence or absence of Jamee species, or G. vaginalis cannot be used as a test for therapeutic success or failure. * ML - MAIN LAB ([facility]) . END OF REPORT * ML=Testing performed at Main Lab DEPARTMENT OF PATHOLOGY, [address] [place] [address] Kwadwo Hoffman M.D. Director [facility] # [id number] 5 GC/Chlamydia Source?: Endocervical Trichomonas Source: Endocervical 6 Patient is On Antibiotics? NO 7 SEE RESULT BELOW Name: ABI BECKFORD : [address]: Junior Guzman MD Acct: [id number] Unit: [id number] AGE: 26 Location: ED Re03/23/17 SEX: F Status: DEP ER SPEC: [id number] KENDRA: 03/23/[address]: Junior Guzman MD REQ: [id number] RECD: 03/23/17 STATUS: LEILA WAHL DR: Judy Honeycutt BLADDER CHANGER _ SOURCE: BLOOD,VENO SPDESC: ORDERED: Blood Cult COMMENTS: Patient is On Antibiotics? NO Procedure Result Reported Site Aerobic Culture Bottle Final 03/28/17- 1958 ML No Growth Day 5 Anaerobic Culture Bottle Final 03/28/17- 1958 ML No Growth Day 5 * ML - MAIN LAB ([facility]) . END OF REPORT * ML=Testing performed at Main Lab DEPARTMENT OF PATHOLOGY, [address] [place] [address] Kwadwo Hoffman M.D. Director [facility] # [id number] 8 Because ethnic data is not always readily available, this report includes an eGFR for both -Americans and non- Americans. The National Kidney Disease Education Program (NKDEP) does not endorse the use of the MDRD equation for patients that are not between the ages of 18 and 70, are , have extremes of body size, muscle mass, or nutritional status, or are non- or non-. According to the National Kidney Foundation, irrespective of diagnosis, the stage of the disease is based on the level of kidney function: Stage Description GFR(mL/min/1.73 m(2)) 1 Kidney damage with normal or decreased GFR 90 2 Kidney damage with mild decrease in GFR 60-89 3 Moderate decrease in GFR 30-59 4 Severe decrease in GFR 15-29 5 Kidney failure <15 (or dialysis) 9 Acute inflammation: >10.00 10 <5.0 Negative 5.0 - 25.0 Indeterminate (Repeat testing recommended after 72 hours) >25.0 Positive Perimenopausal women can display HCG levels of up to 20 mIU/mL 11 [facility] Severe Sepsis and Septic Shock Management Bundle Measure requires all lactic acids initially measuring >2.0 mmol/L be repeated. 12 Acute inflammation: >10.00 13 [place] Severe Sepsis and Septic Shock Management Bundle Measure requires all lactic acids initially measuring >2.0 mmol/L be repeated. 14 >100 to <200 pg/mL: likely compensated congestive heart failure (CHF) 200 to 400 pg/mL: likely moderate CHF >400 pg/mL: likely moderate to severe CHF 15 99th percentile=0.04 ng/mL Troponin results at [facility] and [facility] are not interchangeable. 16 <5.0 Negative 5.0 - 25.0 Indeterminate (Repeat testing recommended after 72 hours) >25.0 Positive Perimenopausal women can display HCG levels of up to 20 mIU/mL 17 Because ethnic data is not always readily available, this report includes an eGFR for both -Americans and non- Americans. The National Kidney Disease Education Program (NKDEP) does not endorse the use of the MDRD equation for patients that are not between the ages of 18 and 70, are , have extremes of body size, muscle mass, or nutritional status, or are non- or non-. According to the National Kidney Foundation, irrespective of diagnosis, the stage of the disease is based on the level of kidney function: Stage Description GFR(mL/min/1.73 m(2)) 1 Kidney damage with normal or decreased GFR 90 2 Kidney damage with mild decrease in GFR 60-89 3 Moderate decrease in GFR 30-59 4 Severe decrease in GFR 15-29 5 Kidney failure <15 (or dialysis) 18 [id number] 19 Test Performed by: [address] [address] 20 REFERENCE VALUE <20.0 (Negative) Test Performed by: [address] [id number] 21 [id number] Acute inflammation: >10.00 23 ADDITIONAL INFORMATION This test was developed and its performance characteristics determined by [facility] in a manner consistent with CLIA requirements. This test has not been cleared or approved by the U.S. Food and Drug Administration. 24 ADDITIONAL INFORMATION This test was developed and its performance characteristics determined by [facility] in a manner consistent with CLIA requirements. This test has not been cleared or approved by the U.S. Food and Drug Administration. 25 ADDITIONAL INFORMATION This test was developed and its performance characteristics determined by [facility] in a manner consistent with CLIA requirements. This test has not been cleared or approved by the U.S. Food and Drug Administration. Test Performed by: [facility] - [address] [address] 26 A negative result does not exclude infection with Borrelia burgdorferi. Serologic testing as per CDC guidelines may be indicated. ADDITIONAL INFORMATION This test was developed and its performance characteristics determined by [facility] in a manner consistent with CLIA requirements. This test has not been cleared or approved by the U.S. Food and Drug Administration. Test Performed by: [facility] - [address] [address] 27 <5.0 Negative 5.0 - 25.0 Indeterminate (Repeat testing recommended after 72 hours) >25.0 Positive Perimenopausal women can display HCG levels of up to 20 mIU/mL 28 Because ethnic data is not always readily available, this report includes an eGFR for both -Americans and non- Americans. The National Kidney Disease Education Program (NKDEP) does not endorse the use of the MDRD equation for patients that are not between the ages of 18 and 70, are , have extremes of body size, muscle mass, or nutritional status, or are non- or non-. According to the National Kidney Foundation, irrespective of diagnosis, the stage of the disease is based on the level of kidney function: Stage Description GFR(mL/min/1.73 m(2)) 1 Kidney damage with normal or decreased GFR 90 2 Kidney damage with mild decrease in GFR 60-89 3 Moderate decrease in GFR 30-59 4 Severe decrease in GFR 15-29 5 Kidney failure <15 (or dialysis) 29 Because ethnic data is not always readily available, this report includes an eGFR for both -Americans and non- Americans. The National Kidney Disease Education Program (NKDEP) does not endorse the use of the MDRD equation for patients that are not between the ages of 18 and 70, are , have extremes of body size, muscle mass, or nutritional status, or are non- or non-. According to the National Kid[employer], irrespective of diagnosis, the stage of the disease is based on the level of kidney function: Stage Description GFR(mL/min/1.73 m(2)) 1 Kidney damage with normal or decreased GFR 90 2 Kidney damage with mild decrease in GFR 60-89 3 Moderate decrease in GFR 30-59 4 Severe decrease in GFR 15-29 5 Kidney failure <15 (or dialysis) 30 [id number] 33 Normal Range 180 to 914 Indeterminate Range 145 to 180 Deficient Range <145 34 RUN DATE: 03/17/14 [facility] LAB LIVE PAGE 1 RUN TIME: [address] [place] [address] Specimen Inquiry Name: ABI BECKFORD : [address]: Marino Wei NP Acct: [id number] Unit: [id number] AGE: 23 Location: [facility] Re03/16/14 SEX: F Status: REG REF SPEC: [id number] KENDRA: 03/16/[address]: Marino Wei NP REQ: [id number] RECD: 03/16/14 STATUS: COMP _ SOURCE: VAGINAL SPDESC: ORDERED: Affirm QUERIES: Medent Number [id number] Procedure Result Verified Site Affirm Vaginal DNA Probe Final 03/17/14- 1259 ML Organism 1 Negative Trichomonas Organism 2 POSITIVE GARDNERELLA Organism 3 Negative Jamee The presence of G. vaginalis, although suggestive, is not diagnostic for bacterial vaginosis. Results should be interpreted in conjunction with other clinical and laboratory data available. Women with vaginal discharge should be evaluated for risk factors of cervicitis and pelvic inflammatory disease, toxic shock syndrome (S.aureus), and if present, evaluated for organisms not included in this assay such as N. gonorrhoeae, C. trachomatis, Mobiluncus, Mycoplasma and/or Prevotella. Mixed infections may occur. The performance of this test on patient specimens collected during or immediately after antimicrobial therapy is unknown. The presence or absence of Jamee species, G. vaginalis or T. vaginalis cannot be used as a test for therapeutic success or failure. END OF REPORT * ML=Testing performed at Main Lab DEPARTMENT OF PATHOLOGY, [facility] [place], [place] [address] Kwadwo Hoffman M.D. Director [place] # [id number] RUN DATE: 03/19/14 [facility] LAB LIVE PAGE 1 RUN TIME: [address] [facility] [employer] [place], [place] [address] Specimen Inquiry Name: ABI BECKFORD : [address]: Marino Wei NP Acct: [id number] Unit: [id number] AGE: 23 Location: [facility] Re03/16/14 SEX: F Status: REG REF SPEC: [id number] KENDRA: 03/16/14-[address]: Marino eWi NP REQ: [id number] RECD: 03/16/14 STATUS: COMP _ SOURCE: [facility]: ORDERED: GC/Chlam RNA QUERIES: Medent Number [id number] Procedure Result Verified Site Chlamydia Trachomatis RNA Final 03/19/14- 1354 ML NEGATIVE for Chlamydia trachomatis rRNA GC (N. gonorrhoeae) RNA Final 03/19/14- 1338 ML NEGATIVE for Neisseria gonorrhoeae rRNA A negative result does not preclude the presence of a C. trachomatis or N. gonorrhoeae infection because results are dependent on adequate specimen collection, absence of inhibitors, and sufficient rRNA to be detected. Test results may be affected by improper specimen collection, improper storage, technical error, or specimen mixup. Limitations of the Procedure: The Aptima Combo 2 Assay is not intended for the evaluation of suspected sexual abuse or for other medico-legal indications. For those patients for whom a false positive result may have adverse psychosocial impact, the [facility] recommends retesting by a method using an alternate technology. Therapeutic failure or success cannot be determined with the Aptima Combo 2 Assay since nucleic acid may persist following appropriate antimicrobial therapy. Results from the Aptima Combo 2 Assay should be interpreted in conjunction with other laboratory and clinical data available to the clinican. CONTINUED ON NEXT PAGE * ML=Testing performed at Main Lab DEPARTMENT OF PATHOLOGY, [facility] [place], [place] [address] Kwadwo Hoffman M.D. Director [facility] # [id number] RUN DATE: 03/19/14 [facility] LAB LIVE PAGE 2 RUN TIME: [address] [facility] [employer] [place], [place] [address] Specimen Inquiry Patient: ABI BECKFORD [id number] (Continued) Specimen: [id number] Collected: 03/16/14-1510 Received: 03/16/14-1801 (Continued) Procedure Result Verified Site GC (N. gonorrhoeae) RNA Final (continued) 03/19/14- 1334 Performance characteristics for detecting C. trachomatis and N. gonorrhoeae are derived from high prevalence populations. Positive results in low prevalence populations should be interpreted carefully with the understanding that the likelihood of a false positive may be higher than a true positive. END OF REPORT * ML=Testing performed at Main Lab DEPARTMENT OF PATHOLOGY, [facility] [place] [address] Kwadwo Hoffman M.D. Director [facility] # [id number] 36 RUN DATE: 09/01/13 [facility] LAB LIVE PAGE 1 RUN TIME: [address] [place] [address] Specimen Inquiry Name: ABI BECKFORD : [address]: Judy Honeycutt NP Acct: [id number] Unit: [id number] AGE: 22 Location: [facility] Re08/31/13 SEX: F Status: REG REF SPEC: [id number] KENDRA: 08/31/13-1514 [facility] [place] DR: Judy Honeycutt NP REQ: [id number] RECD: 08/31/13 STATUS: SOUT _ ORDERED: IMAGE ANALYSIS FINAL DIAGNOSIS Negative for Intraepithelial lesion or Malignancy A. Ectocervical/Endocervical Specimen Adequacy: Satisfactory of evaluation Transformation zone component identified Patient Information: HPV: Thin Layer Pap Test w/reflex to high risk HPV DNA testing when ASCUS Actual Specimen Date: 08/31/13 Last Menstrual Date: 08/10/13 ?: N Signed (signature on file) DIOR Stewart (ASCP) 09/01 1203 This Pap test was evaluated with the assistance of the ZAO BegunPrep Test Imaging System. Due to cytologic findings at the marionette performer microscope, comprehensive manual rescreening by a Appliance Fixer may be required. The Pap Smear is a screening test designed to aid in the detection of premalignant and malignant conditions of the uterine cervix. It is not a diagnostic procedure and should not be used as the sole means of detecting cervical cancer. Both false- positive and false- negative reports do occur. Depending on your risk status, a Pap smear shoudl be obtained and evaluated every 1-3 years. END OF REPORT * ML=Testing performed at Main Lab DEPARTMENT OF PATHOLOGY, [address] [place] [address] Kwadwo Hoffman M.D. Director [facility] Permit #[id number] 37 RUN DATE: 09/01/13 [facility] LAB LIVE PAGE 1 RUN TIME: [address] [place], [place] [address] Specimen Inquiry Name: LOTUSRODGERABI : [address]: Judy Honeycutt NP Acct: [id number] Unit: [id number] AGE: 22 Location: [facility] Re08/31/13 SEX: F Status: REG REF SPEC: [id number] KENDRA: 08/31/13-[address]: Judy Honeycutt NP REQ: [id number] RECD: 08/31/13 STATUS: COMP _ SOURCE: VAGINAL SPDESC: ORDERED: Affirm QUERIES: Medent Number [id number] Procedure Result Verified Site Affirm Vaginal DNA Probe Final 09/01/13- 1117 ML Organism 1 Negative Trichomonas Organism 2 POSITIVE GARDNERELLA Organism 3 Negative Jamee The presence of G. vaginalis, although suggestive, is not diagnostic for bacterial vaginosis. Results should be interpreted in conjunction with other clinical and laboratory data available. Women with vaginal discharge should be evaluated for risk factors of cervicitis and pelvic inflammatory disease, toxic shock syndrome (S.aureus), and if present, evaluated for organisms not included in this assay such as N. gonorrhoeae, C. trachomatis, Mobiluncus, Mycoplasma and/or Prevotella. Mixed infections may occur. The performance of this test on patient specimens collected during or immediately after antimicrobial therapy is unknown. The presence or absence of Jamee species, G. vaginalis or T. vaginalis cannot be used as a test for therapeutic success or failure. END OF REPORT * ML=Testing performed at Main Lab DEPARTMENT OF PATHOLOGY, [address] [place] [address] Kwadwo Hoffman M.D. Director [facility] Permit #[id number] Procedures Description No Information Encounters Type Date Location Provider [facility] E/M Dx Office Visit 10/09/2016 8:45a Main Office NATIVIDAD Jimenez [address] R11.0 R51 M25.50 Office Visit 05/11/2016 11:45a Main Office NATIVIDAD Jimenez 20441 R10.9 K92.1 Office Visit 02/01/2016 3:00p Main Office Judy Honeycutt [facility] [address] M25.562 M25.50 Office Visit 09/23/2014 3:45p Main Office Cami Hugo M.D. 90291 461.0 466.0 Office Visit 03/16/2014 2:30p Main Office Marino Wei [facility] [address] 616.10 493.90 Office Visit 02/03/2014 3:45p Main Office Judy Honeycutt [facility] [address]155 844.9 Office Visit 08/31/2013 1:30p Main Office Judy Honeycutt [facility] [address] V70.0 V72.31 Plan of Care 04/24/2017 - Judy Honeycutt [facility] HeadacheNew Therapy:Physical Therapy- Evaluate And TreatComments:exam wnlhydration. use of NSAIDSwill refer to neurology as these have been ongoing. discussed possible cluster headache or may be related to neck tension. monitor sx and contact the office if any concernsFollow up:refer to neurology for ongoing headaches. lately daily work note [id number] CervicalgiaComments:Pain seems to be muscular. PT referral Discussed use of antiinflammatory and muscle relaxant. RTC with worsening/not improving sxFollow up:PT referral
[2017-05-19] MEDS ORDERED: Ondansetron INJ* 2 MG/ML VIAL IV ONE ×2 (00:20→06:05)
[2017-05-19] MEDS ORDERED: Morphine INJ* 2 MG/ML 1 ML CARPUJECT IV ONE (00:20)
[2017-05-19 00:24] LABS: Hematocrit 43 % (35-47); Hemoglobin 14.3 g/dl (12.0-16.0); Mean Corpuscular HGB Conc 34 g/dl (31-36); Mean Corpuscular Hemoglobin 31 pg (27-31); Mean Corpuscular Volume 91 fL (80-97); Mean Platelet Volume 8 um3 (7.4-10.4); Red Blood Count 4.67 10^6/ul (4.0-5.4); Red Cell Distribution Width 13 % (10.5-15); White Blood Count 8.6 10^3/ul (3.5-10.8)
[2017-05-19] MEDS ORDERED: Morphine INJ* 2 MG/ML 1 ML SYRINGE (TWO MG - NEW SYRINGE VERSION) ONE (00:34)
[2017-05-19] MEDS: NS 0.9% 1000 ML* 1,000 ML IV ONE ×2 (00:39→04:51)
[2017-05-19 00:41] LABS: ALT 9 U/L (7-52); AST 17 U/L (13-39); Albumin 4.2 g/dL (3.2-5.2); Alkaline Phosphatase 46 U/L (34-104); Anion Gap 4 mmol/L (2-11); BUN/Creatinine Ratio 13.8 (8-20); Blood Urea Nitrogen 11 mg/dL (6-24); C Reactive Protein 1.45 mg/L (< 5.00); CO2 Carbon Dioxide 27 mmol/L (22-32); Calcium 9.3 mg/dL (8.6-10.3); Chloride 104 mmol/L (101-111); EGFR African American 111.5 (>60); EGFR Non-African American 86.7 (>60); Glucose 97 mg/dL (70-100); Lipase 16 U/L (11.0-82.0); Potassium 4.5 mmol/L (3.5-5.0); Sodium 135 mmol/L (133-145); Total Protein 7.2 g/dL (6.4-8.9)
[2017-05-19 00:49] LABS: Urine Bacteria Absent (Absent); Urine Bilirubin Negative (Negative); Urine Glucose Negative (Negative); Urine Nitrite Negative (Negative)
[2017-05-19] MEDS ORDERED: Iohexol 300* (CONTRAST) 10 ML SDV IV ONE (00:57)
[2017-05-19] MEDS ORDERED: Piperacillin/Tazobac ADVAN(*) 3.375 GM in NS 0.9% 100 ML* 100 ML IVPB ONE (04:11)
[2017-05-19] MEDS ORDERED: HYDROmorphone INJ* 1 MG/ML CARPUJECT SYRINGE ONE (04:40)
[2017-05-19] MEDS ORDERED: HYDROmorphone INJ* 2 MG/ML CARPUJECT SYRINGE IV SLOW PU ONE (04:53)
[2017-05-19] MEDS ORDERED: NS 0.9% 1000 ML* 1,000 ML IV SCH (06:00)
--- NOTE | 2017-05-19 06:04 | ED ---
Jack Smith Tiffany, scribed for Franck Herrera on 05/19/17 at 0027 . Complex/Multi-Sys Presentation - HPI Summary HPI Summary: This patient is a 25 year old F presenting to [facility] with a chief complaint of right sided flank pain since yesterday morning. The patient rates the pain 7/10 in severity. Symptoms aggravated by nothing. Symptoms alleviated by nothing. Patient reports nausea and constipation. Patient denies vomiting, diarrhea, dysuria and left flank pain. - History Of Current Complaint Chief Complaint: EDFlankPain Time Seen by Provider: 05/19/17 00:16 Hx Obtained From: Patient Onset/Duration: Lasting Days - Yesterday morning, Still Present Severity Initially: Moderate - 7/10 Aggravating Factor(s): Nothing Alleviating Factor(s): Nothing Associated Signs And Symptoms: Positive: Other - nausea and constipation; NEGATIVE: vomiting, diarrhea, dysuria and left flank pain. - Allergies/Home Medications Allergies/Adverse Reactions: Allergies Allergy/AdvReac Type Severity Reaction Status Date / Time Azithromycin [From Zithromax] Allergy Difficulty Verified 05/19/17 00:18 Breathing/Wheezing PMH/Surg Hx/FS Hx/Imm Hx Previously Healthy: No Endocrine/Hematology History: Denies: Hx Diabetes Cardiovascular History: Denies: Hx Hypertension, Hx Pacemaker/ICD Respiratory History: Reports: Hx Asthma, Hx Seasonal Allergies GI History: Reports: Hx Gastroesophageal Reflux Disease - RARELY History: Denies: Hx Renal Disease Sensory History: Denies: Hx Contacts or Glasses, Hx Hearing Aid Opthamlomology History: Denies: Hx Contacts or Glasses Psychiatric History: Denies: Hx Panic Disorder - Surgical History Surgery Procedure, Year, and Place: WISDOM TEETH REMOVAL 2010. D+C 2009 [place]. Tonsilectomy Hx Anesthesia Reactions: No - Immunization History Date of Tetanus Vaccine: unk Date of Influenza Vaccine: none Infectious Disease History: No Infectious Disease History: Denies: Hx Clostridium Difficile, Hx Hepatitis, Hx Human Immunodeficiency Virus (HIV), Hx of Known/Suspected MRSA, Hx Shingles, Hx Tuberculosis, Hx Known/ Suspected VRE, Hx Known/Suspected VRSA, History Other Infectious Disease, Traveled Outside the [place] in Last 30 Days - Family History Known Family History: Positive: Hypertension, Diabetes Family History: FHx of CA, palpitations, and anxiety - Social History Alcohol Use: Rare Hx Substance Use: No Substance Use Type: Reports: None Substance Use Comment - Amount & Last Used: 1 WEEK AGO Hx Tobacco Use: No Smoking Status (MU): Never Smoked Tobacco Have You Smoked in the Last Year: No Review of Systems Positive: Nausea, Other - Constipation. Negative: Vomiting, Diarrhea Negative: dysuria Positive: Other - Right flank pain; NEGATIVE: left flank pain All Other Systems Reviewed And Are Negative: Yes Physical Exam - Summary Physical Exam Summary: Appearance: Well appearing, no pain distress Skin: warm, dry, reflects adequate perfusion Head/face: normal Eyes: EOMI, YULIYA ENT: normal Neck: supple, non-tender Respiratory: CTA, breath sounds present Cardiovascular: RRR, pulses symmetrical Abdomen: tenderness in RLQ Bowel: present Musculoskeletal: normal, strength/ROM intact Neuro: normal, sensory motor intact, A&Ox3 Triage Information Reviewed: Yes Vital Signs On Initial Exam: Initial Vitals Temp Pulse Resp BP Pulse Ox 98 F 77 18 119/84 98 05/18/17 22:41 05/18/17 22:41 05/18/17 22:41 05/18/17 22:41 05/18/17 22:41 Vital Signs Reviewed: Yes - [place] Coma Scale Coma Scale Total: 15 Diagnostics - Vital Signs Vital Signs Temp Pulse Resp BP Pulse Ox 05/18/17 22:41 98 F 77 18 119/84 98 - Laboratory Lab Results: Lab Results 05/19/17 05/19/17 05/19/17 Range/Units 00:08 00:08 00:08 WBC 8.6 (3.5-10.8) 10^3/ul RBC 4.67 (4.0-5.4) 10^6/ul Hgb 14.3 (12.0-16.0) g/dl Hct 43 (35-47) % MCV 91 (80-97) fL MCH 31 (27-31) pg MCHC 34 (31-36) g/dl RDW 13 (10.5-15) % Plt Count 303 (150-450) 10^3/ul MPV 8 (7.4-10.4) um3 Neut % (Auto) 44.0 (38-83) % Lymph % (Auto) 40.9 (25-47) % Isabella % (Auto) 9.3 H (1-9) % Eos % (Auto) 4.7 (0-6) % Baso % (Auto) 1.1 (0-2) % Absolute Neuts (auto) 3.8 (1.5-7.7) 10^3/ul Absolute Lymphs (auto) 3.5 (1.0-4.8) 10^3/ul Absolute Monos (auto) 0.8 (0-0.8) 10^3/ul Absolute Eos (auto) 0.4 (0-0.6) 10^3/ul Absolute Basos (auto) 0.1 (0-0.2) 10^3/ul Absolute Nucleated RBC 0.01 10^3/ul Nucleated RBC % 0.1 Sodium 135 (133-145) mmol/L Potassium 4.5 (3.5-5.0) mmol/L Chloride 104 (101-111) mmol/L Carbon Dioxide 27 (22-32) mmol/L Anion Gap 4 (2-11) mmol/L BUN 11 (6-24) mg/dL Creatinine 0.80 (0.51-0.95) mg/dL Est GFR ( Amer) 111.5 (>60) Est GFR (Non-Af Amer) 86.7 (>60) BUN/Creatinine Ratio 13.8 (8-20) Glucose 97 (70-100) mg/dL Lactic Acid 0.5 (0.5-2.0) mmol/L Calcium 9.3 (8.6-10.3) mg/dL Total Bilirubin 0.70 (0.2-1.0) mg/dL AST 17 (13-39) U/L ALT 9 (7-52) U/L Alkaline Phosphatase 46 (34-104) U/L C-Reactive Protein 1.45 (< 5.00) mg/L Total Protein 7.2 (6.4-8.9) g/dL Albumin 4.2 (3.2-5.2) g/dL Globulin 3.0 (2-4) g/dL Albumin/Globulin Ratio 1.4 (1-3) Lipase 16 (11.0-82.0) U/L Beta HCG, Quant < 0.60 mIU/mL Urine Color Urine Appearance Urine pH (5-9) Ur Specific [place] (1.010-1.030) Urine Protein (Negative) Urine Ketones (Negative) Urine Blood (Negative) Urine Nitrate (Negative) Urine Bilirubin (Negative) Urine Urobilinogen (Negative) Ur Leukocyte Esterase (Negative) Urine WBC (Auto) (Absent) Urine RBC (Auto) (Absent) Ur Squamous Epith Cells (Absent) Urine Bacteria (Absent) Urine Glucose (Negative) 05/19/17 Range/Units 00:28 WBC (3.5-10.8) 10^3/ul RBC (4.0-5.4) 10^6/ul Hgb (12.0-16.0) g/dl Hct (35-47) % MCV (80-97) fL MCH (27-31) pg MCHC (31-36) g/dl RDW (10.5-15) % Plt Count (150-450) 10^3/ul MPV (7.4-10.4) um3 Neut % (Auto) (38-83) % Lymph % (Auto) (25-47) % Isabella % (Auto) (1-9) % Eos % (Auto) (0-6) % Baso % (Auto) (0-2) % Absolute Neuts (auto) (1.5-7.7) 10^3/ul Absolute Lymphs (auto) (1.0-4.8) 10^3/ul Absolute Monos (auto) (0-0.8) 10^3/ul Absolute Eos (auto) (0-0.6) 10^3/ul Absolute Basos (auto) (0-0.2) 10^3/ul Absolute Nucleated RBC 10^3/ul Nucleated RBC % Sodium (133-145) mmol/L Potassium (3.5-5.0) mmol/L Chloride (101-111) mmol/L Carbon Dioxide (22-32) mmol/L Anion Gap (2-11) mmol/L BUN (6-24) mg/dL Creatinine (0.51-0.95) mg/dL Est GFR ( Amer) (>60) Est GFR (Non-Af Amer) (>60) BUN/Creatinine Ratio (8-20) Glucose (70-100) mg/dL Lactic Acid (0.5-2.0) mmol/L Calcium (8.6-10.3) mg/dL Total Bilirubin (0.2-1.0) mg/dL AST (13-39) U/L ALT (7-52) U/L Alkaline Phosphatase (34-104) U/L C-Reactive Protein (< 5.00) mg/L Total Protein (6.4-8.9) g/dL Albumin (3.2-5.2) g/dL Globulin (2-4) g/dL Albumin/Globulin Ratio (1-3) Lipase (11.0-82.0) U/L Beta HCG, Quant mIU/mL Urine Color Yellow Urine Appearance Clear Urine pH 7.0 (5-9) Ur Specific [place] 1.010 (1.010-1.030) Urine Protein Negative (Negative) Urine Ketones Negative (Negative) Urine Blood 2+ H (Negative) Urine Nitrate Negative (Negative) Urine Bilirubin Negative (Negative) Urine Urobilinogen Negative (Negative) Ur Leukocyte Esterase 1+ H (Negative) Urine WBC (Auto) Trace(0-5/hpf) (Absent) Urine RBC (Auto) Absent (Absent) Ur Squamous Epith Cells Present H (Absent) Urine Bacteria Absent (Absent) Urine Glucose Negative (Negative) Result Diagrams: 05/19/17 00:08 05/19/17 00:08 Lab Statement: Any lab studies that have been ordered have been reviewed, and results considered in the medical decision making process. - CT Abd/Pel CT Interpretation Completed By: Radiologist - CT Abd/Pel reveals, per radiologist, Nonspecific fusiform prominence of the more distal aspect of the appendix or mid to distal aspect of the appendix. Minimal adjacent inflammatory stranding cannot be excluded. This is indeterminate for small mucocele or early appendicitis. Heterogeneous enlargement of the right greater than left ovaries is indeterminate. Recommend correlation with pelvic ultrasound for improved characterization. ED physician has reviewed this radiology report. Complex Multi-Symp Course/Dx Course Of Treatment: This patient is a 25 year old F c/o right sided flank pain since yesterday morning. CT Abd/Pel reveals, per radiologist, Nonspecific fusiform prominence of the more distal aspect of the appendix or mid to distal aspect of the appendix. Minimal adjacent inflammatory stranding cannot be excluded. This is indeterminate for small mucocele or early appendicitis. Heterogeneous enlargement of the right greater than left ovaries is indeterminate. Recommend correlation with pelvic ultrasound for improved characterization. Bloodwork/UA obtained. In the ED course the patient was given Morphine and Zofran. We discussed patient care with Dr. Paz (surgery) who will come to see the patient in the morning. Patient will be admitted to Dr. Paz. The patient is agreeable with this plan. - Diagnoses Differential Diagnoses/HQI/PQRI: Urinary Tract Infection, Other - appendicitis/ diverticulitis Provider Diagnoses: Early appendicitis - Physician Notifications Discussed Care Of Patient With: Costa Paz Time Discussed With Above Provider: 04:09 Instructed by Provider To: Other - Dr. Paz (surgery) will come to see the patient in the morning. Discharge - Discharge Plan Condition: Fair Disposition: ADMITTED TO [facility] Discharge Disposition Comment: Admit to Dr. Paz (surgery) Referrals: Judy Cee, KOHINOOR OPERATOR [Primary Care Provider] - The documentation as recorded by the Jack barbosa Tiffany accurately reflects the service I personally performed and the decisions made by Sharon bianchi Emmanuel.
[2017-05-19] MEDS ORDERED: Ondansetron INJ* 2 MG/ML VIAL ONE ×2 (06:06→10:48)
[2017-05-19] MEDS ORDERED: Morphine INJ* 4 MG/ML 1 ML CARPUJECT ONE (06:26)
[2017-05-19] MEDS ORDERED: Morphine INJ* 4 MG/ML 1 ML CARPUJECT IV ONE (06:28)
[2017-05-19] MEDS ORDERED: Famotidine IV* 10 MG/ML 2 ML (20 mg) IV ONE (08:21)
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
[2017-05-19] MEDS ORDERED: Buffered Lidocaine 0.9% SYRIN* 5 ML/SYR SYRINGE INTRADERM ONE (08:34)
[2017-05-19] MEDS ORDERED: oxyCODONE/Acetamin 5/325 MG* TAB PO PRN (08:35)
[2017-05-19] MEDS ORDERED: Morphine INJ* 2 MG/ML 1 ML CARPUJECT IV PRN (08:35)
[2017-05-19] MEDS ORDERED: DiMENhydriNATE IV* 50 MG/ML VIAL IV PUSH PRN (08:35)
[2017-05-19] MEDS ORDERED: PROCHLORPERAZINE INJ 5 MG/ML 2 ML VIAL IV PRN (08:35)
[2017-05-19] MEDS ORDERED: KETAMINE HCL* 50 MG/ML 10 ML VIAL ONE (08:39)
[2017-05-19] MEDS ORDERED: Atracurium* 10 MG/ML 10 ML VIAL ONE (08:39)
[2017-05-19] MEDS ORDERED: fentaNYL* 50 MCG/ML 2 ML VIAL (100 MCG VIAL) ONE ×2 (08:39→12:04)
[2017-05-19] MEDS ORDERED: Midazolam* 1 MG/ML 10 ML VIAL (10 MG) ONE (08:39)
--- NOTE | 2017-05-19 09:23 | RAD ---
Indication: Right lower quadrant pain. Contrast: Administered 97.1 ml of OMNIPAQUE 300 mg/ml CT of the abdomen and pelvis was performed after oral and IV contrast administration. Coronal and sagittal reconstructed images were obtained. No prior study is available for comparison. The lung bases demonstrate no pleural fluid, nodules. Heart is normal size without evidence of pericardial effusion. Liver is normal in size. No focal lesions or intrahepatic ductal dilatation is noted. The gallbladder demonstrates no calcified gallstones. No pericholecystic fluid or wall thickening is identified. The pancreas indicates no mass or pancreatic duct dilatation. The spleen is normal in size. No adrenal lesions are noted. The kidneys demonstrates no hydronephrosis of either kidney. No retroperitoneal adenopathy is noted. No dilated loops of bowel are noted. CT of the pelvis demonstrates focally dilated appendix in its midportion. This measures up to 11 mm. There may be some periappendiceal infiltration of fat. This may represent appendicitis or a mucocele. Clinical correlation is suggested. The uterus is grossly unremarkable. There are enlarged ovaries bilaterally. The left ovary measures up to 4.8 cm with a cyst measuring up to 2.3 cm. The right ovary measures up to 6.4 cm. Hemorrhagic cyst is not excluded as there are scattered areas of hypodensity noted right ovary. Correlation with ultrasound may BE helpful. No free fluid is identified. IMPRESSION: Fusiform dilatation of the appendix. This may represent early appendicitis or a mucocele and clinical correlation is suggested. Enlarged ovaries bilaterally with areas of high density in the right ovary which may represent a hemorrhagic cyst. Clinical correlation and pelvic ultrasound may be indicated.
[2017-05-19] MEDS ORDERED: Famotidine IV* 10 MG/ML 2 ML (20 mg) ONE (09:41)
[2017-05-19] MEDS ORDERED: Heparin VIAL(*) 5000 UNITS/ML VIAL (FIVE THOUSAND) SUBCUT ONE (09:46)
[2017-05-19] MEDS ORDERED: ceFOXitin 2 GM IVPREMIX* 2 GM/50 ML BAG ONE (09:53)
[2017-05-19] MEDS ORDERED: ceFOXitin 2 GM IVPREMIX* 2 GM/50 ML BAG IVPB ONE (10:00)
[2017-05-19] MEDS ORDERED: Heparin VIAL(*) 5000 UNITS/ML VIAL (FIVE THOUSAND) ONE (10:20)
[2017-05-19] MEDS ORDERED: Bupivacaine 0.25% SDV* 30 ML ONE (10:42)
[2017-05-19] MEDS ORDERED: Neostigmine Methylsulfate* 2 MG/2 ML SYRINGE ONE (10:48)
[2017-05-19] MEDS ORDERED: Propofol* 10 MG/ML 20 ML BTL IV PUSH ONE (10:48)
[2017-05-19] MEDS ORDERED: Lidocaine 2% PF * 5 ML VIAL ONE (10:48)
[2017-05-19] MEDS ORDERED: Dexamethasone IV* 4 MG/ML 1 ML (4 MG) ONE (10:48)
[2017-05-19] MEDS ORDERED: Glycopyrrolate IV* 0.2 MG/ML 1 ML VIAL ONE (10:48)
[2017-05-19] MEDS ORDERED: Ketorolac INJ* 30 MG/ML 1 ML VIAL ONE (10:48)
[2017-05-19] MEDS ORDERED: DiMENhydriNATE IV* 50 MG/ML VIAL ONE (11:58)
[2017-05-19] MEDS: fentaNYL* 50 MCG/ML 2 ML VIAL (100 MCG VIAL) IV PRN ×4 (12:05→12:36)
[2017-05-19] MEDS ORDERED: Scopolamine 1.5 mg* PATCH ONE (12:10)
[2017-05-19] MEDS ORDERED: oxyCODONE TAB* 5 MG TAB PO PRN (12:31)
--- NOTE | 2017-05-19 12:31 | BRIEFOPN ---
Brief Operative Note - Surgery Procedures: PREOP DX: RLQ ABD PAIN POSTOP DX: SAME AND R OVARIAN TORSION AND ABNORMAL APPENDIX PROC: DX LAPAROSCOPY; UNTWISTING OF R OVARIAN TORSION; LAP APPENDECTOMY SURG: MECENAS ASSIST: NONE ANES: GET; FELLOWS EBL: <10ML IVF: 1.2 L LR SPEC: APPENDIX DRAIN/COMPL: NONE COND: STABLE TO RR, EXTUBATED.
--- NOTE | 2017-05-19 13:20 | PN ---
Progress Note - Progress Note Date of Service: 05/19/17 Note: Pelvic Exam: Prior to the exam, the patient and provider discussed the requirements of the exam, positioning and concerns for the patient. Patient states she has been having some fertility issues and pain with intercourse. She notes to pain in the RLQ and right flank starting yesterday, although she has had intermittent discomfort in the bilateral lower quadrants for several months. She has not seen an OBGYN and has not had a transvaginal US. Feels she may have PCOS, but is unsure. She is concerned about pain during the examination. She states the RLQ is pain without palpation, and feels with the bimanual exam as explained to her will create a worsening discomfort. However, she is willing to attempt at the pelvic exam. External genitalia: hair distribution, skin, labia minora and majora, perineal body, clitoris, urethral meatus, vestibule, and introitus are evaluated and negative for obvious developmental abnormalities, No discoloration, ulcers, plaques, verrucous changes, excoriation around the labia major, masses, and evidence of trauma or infection. No inguinal lymphadenopathy. Speculum: Speculum exam of vagina reveals mild amount of discharge with no associated color. No bleeding although patient is on menses. Bimanual exam: Bimanual examination reveals no cervical motion tenderness and cervix is WNL. The uterus is palpable in a retroverted position. It is mobile , non-tender, smooth and of normal size for her age. Ovaries are not palpable and no adnexal masses are appreciated. During the exam, patient was asked several times about her comfortability level. While she maintains the R side is slightly more painful, she states the pain is no worse than her normal yearly bimanual exams. During the exam, affirm, trich and GC/Chlamydia swabs obtained and sent. She is cleared for surgery at this time.
[2017-05-19] MEDS ORDERED: PROCHLORPERAZINE INJ 5 MG/ML 2 ML VIAL ONE (14:31)
[2017-05-19 14:34] VITALS: BP 114/78
--- NOTE | 2017-05-20 06:43 | OP ---
CC: Justin Miranda MD OPERATIVE REPORT: DATE OF OPERATION: 05/19/17 DATE OF : 89 SURGEON: Costa Paz MD. ENVIRONMENTAL SAMPLER: None. ANESTHESIOLOGIST: Dr. Rey ANESTHESIA: General endotracheal. PRE-OP DIAGNOSIS: Right lower quadrant abdominal pain. POST-OP DIAGNOSES: Right lower quadrant abdominal pain and right ovarian torsion and abnormal append ix. OPERATIVE PROCEDURE: Diagnostic laparoscopy with untwisting of right ovarian torsion and laparoscopi c appendectomy. ESTIMATED BLOOD LOSS: Less than 10 mL. IV FLUIDS: 1.2 L crystalloid. SPECIMEN: Appendix. DRAINS: None. COMPLICATIONS: None. COUNTS: Instrument, needle, and sponge counts were correct. DESCRIPTION OF PROCEDURE: The patient was brought to the operating room and placed on the table supi ne. Sequential compression devices were placed on both lower extremities and general anesthesia was administered. Her abdomen was prepped and draped in usual sterile fashion and she received appropria te intravenous antibiotics. Local anesthetic was infiltrated periumbilically and a transumbilical vertical incision was created u sing an open technique. After accessing the peritoneal cavity, carbon dioxide was insufflated to a p ressure of 15 mmHg through a 12 mm trocar. Additionally, 5 mm trocars were placed in the suprapubic midline and left lower quadrant. There was large amount of clear straw colored fluid noted within th e pelvis. Inspection to the pelvis revealed that the left ovary was easily visible. Inspection to t he right side of the pelvis revealed what appeared to be a torsion of the right salpinx, the ovary wa s not visible. Inspection of the terminal ileum revealed this to be normal as was the cecum. The ap pendix had an abnormal dilation in its mid portion but was without any evidence of inflammatory mata es. The first maneuver was to elevate the right adnexa from the pelvis. In doing so, it was determined t hat there was a what appeared to be a 360 degree twist of the adnexa, which subsequently untwisted. The ovary appeared to be approximately 6 cm to 8 cm in its greatest dimension and the salpinx appeare d to be edematous; however, tissues were viable. Next, attention was turned to the appendix which was freed from the lateral attachments using the Lig aSure device and this was also used to create a window at the base of the appendix. The appendix was divided at the cecum with the Endo NAGA stapler with a trotter cartridge and then the mesentery of the ap pendix was divided with the LigaSure. The appendix was withdrawn through the 12 mm port and submitte d to Pathology. Copious lavage of the pelvis was performed and inspection of the right adnexa again revealed that it was viable, but edematous. At this point, intraoperative telephone consultation was made with Dr. Miranda who advised that the p atient did not need any additional S[employer] interventions at this time and would be followed up as an outp atient. At this point, the inspection revealed the hemostasis to be excellent and the ports were rem max under direct visualization and carbon dioxide was released. The umbilicus was closed with 0 Braden ysorb in an interrupted fashion to approximate the fascia. The skin incisions were closed with 4-0 V icryl in subcuticular fashion and DermaFlex was applied to the site. The patient tolerated the proce dure well. She was extubated uneventfully and transferred to the recovery room in stable condition. [id number]/[facility] #: [id number]
== END 2017-05-19 14:55 | disposition home or self-care (01) ==
LOC: ED 22:32 → OR 05-19 09:31
PROVIDERS: ATTEND Surgery
DX: K35.80 Unspecified acute appendicitis (principal); N83.53 Torsion of ovary, ovarian pedicle and fallopian tube; R10.31 Right lower quadrant pain; N94.89 Other specified conditions associated with female genital organs and menstrual cycle
CPT/HCPCS: 36415; 74177; 80053; 81003; 81015; 83605; 83690; 84702; 85025; 86140; 86850; 86900; 86901; 87086; 87480; 87491; 87510; 87591; 87661; 88304; 96374; 96375; 99284; A9270-GY; C1776; J0694; J0780; J1100; J1170; J1240; J1644; J1885; J2250; J2270; J2405; J2543; J2704; J3010; Q9967

== ENCOUNTER → 2018-11-06 13:59 | Emergency (ER) | payer BC ==
[2018-11-06 14:12] VITALS: BP 131/76
== END | disposition left against medical advice (07) ==
LOC: ED 13:59
DX: R42 Dizziness and giddiness (principal); R68.2 Dry mouth, unspecified; R11.0 Nausea; Z53.21 Procedure and treatment not carried out due to patient leaving prior to being seen by health care provider
CPT/HCPCS: 93005